=== PATIENT | male | born 1935 | race Caucasian/White ===

== ENCOUNTER → 2023-08-23 08:32 | Outpatient (REF) | payer MEDICARE, SELFPAY | LOC: HWRAD 08:32 | PROVIDERS: ATTENDING PHYSICIAN Specialist; FAMILY PHYSICIAN Family Medicine | DX: R31.0 Gross hematuria (principal) | CPT/HCPCS: 74178; Q9967 ==

== ENCOUNTER → 2024-07-08 10:19 | Outpatient (REF) | payer MEDICARE, SELFPAY | LOC: RCS 10:19 | PROVIDERS: ATTENDING PHYSICIAN Family Medicine | DX: R07.9 Chest pain, unspecified (principal); R47.81 Slurred speech; Z91.81 History of falling | CPT/HCPCS: 93017 ==

== ENCOUNTER → 2024-07-10 10:01 | Outpatient (REF) | payer MEDICARE, SELFPAY | LOC: HWRCS 10:01 | PROVIDERS: ATTENDING PHYSICIAN Internal Medicine Interventional Cardiology; FAMILY PHYSICIAN Family Medicine | DX: I10 Essential (primary) hypertension (principal) | CPT/HCPCS: 93306 ==

== ENCOUNTER → 2024-07-12 11:12 | Outpatient (REF) | payer MEDICARE, SELFPAY | LOC: HWRAD 11:12 | PROVIDERS: ATTENDING PHYSICIAN Family Medicine; REFERRING PHYSICIAN Internal Medicine Interventional Cardiology | DX: Z91.81 History of falling (principal); R47.81 Slurred speech | CPT/HCPCS: 93880 ==

== ENCOUNTER → 2024-07-15 13:29 | Outpatient (REF) | payer MEDICARE, SELFPAY | LOC: MRI 3T 13:29 | PROVIDERS: ATTENDING PHYSICIAN Family Medicine | DX: Z91.81 History of falling (principal); R47.81 Slurred speech | CPT/HCPCS: 70551 ==

== ENCOUNTER 2024-10-16 04:25 | Inpatient (IN) | payer MEDICARE, SELFPAY ==
[2024-10-15] VITALS (8 sets, daily range): BP systolic 98–145; BP diastolic 55–88; BMI 25.5
[2024-10-15 17:58] LABS: Hematocrit 39.9 % (39.0-52.0); Hemoglobin 13.9 g/dL (13.0-18.0); Mean Corp Hgb Conc. 34.8 g/dL (33.0-37.0); Mean Corpuscular Volume 96.8 fL (80.0-94.0); Nucleated Red Blood Cells % 0 % (-); Platelet Count 170 10^3/uL (130-400); Red Cell Dist. Width 13.0 % (11.5-14.5)
[2024-10-15 18:10] LABS: INR 2.54; PT 27.3 Sec (11.4-14.6)
[2024-10-16] VITALS (21 sets, daily range): BP systolic 97–146; BP diastolic 47–88; BMI 24.1
[2024-10-16 00:39] LABS: ALT (SGPT) 20 U/L (0-50); AST (SGOT) 25 U/L (17-59); Albumin 3.9 g/dl (3.5-5.0); Alkaline Phosphatase 70 U/L (38-126); Blood Urea Nitrogen 29 mg/dl (9-20); Calcium 8.9 mg/dl (8.4-10.2); Carbon Dioxide 23 mmol/L (22-30); Chloride 111 mmol/L (98-107); Estimated Creatinine Clearance 74 ml/min; Glucose 106 mg/dl (70-99); Potassium 4.6 mmol/L (3.5-5.1); Sodium 140 mmol/L (135-145); Total Protein 6.2 g/dl (6.3-8.2); eGFR > 60.00
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
[2024-10-16] MEDS: AQUAMEPHYTON 51 MG IV (03:44)
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
[2024-10-16] MEDS: KCENTRA 80 UNIT IV (04:36)
[2024-10-16 04:47] LABS: Fibrinogen 299 MG/DL (199-459)
--- NOTE | 2024-10-16 06:00 | PTCARENOTE ---
Admitted pt from the ED s/p fall with left knee hematoma. Alert and oriented/pleasant. CAMPBELL. Bedrest respected. Left knee swollen 19inches at biggest circumference (knee including blister). Palpable pulses. Neurovascular checks q2h. No pain with
rest. Knee soft, ecchymotic. Room air, lungs clear. NPO for now. Sips of clears as ordered. Voids in urinal. Report given to oncoming shift.
[2024-10-16 06:31] LABS: INR 1.31; PT 16.6 Sec (11.4-14.6)
[2024-10-16 06:45] LABS: Blood Urea Nitrogen 29 mg/dl (9-20); Calcium 8.9 mg/dl (8.4-10.2); Carbon Dioxide 21 mmol/L (22-30); Chloride 110 mmol/L (98-107); Estimated Creatinine Clearance 74 ml/min; Glucose 114 mg/dl (70-99); Potassium 4.5 mmol/L (3.5-5.1); Sodium 138 mmol/L (135-145); eGFR > 60.00
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
[2024-10-16] MEDS: THIAMINE INJECTION 200 MG IV ×2 (09:17→20:24)
[2024-10-16] MEDS: FOLVITE 1 MG PO (09:17)
--- NOTE | 2024-10-16 11:17 | PTCARENOTE ---
Vascular team at bedside this am. Follow up with hospitalist team. Await surgery to reevaluate. Continue npo till cleared by team. Patient update family via phone. Continue to reinforce plan of cares. Await diet orders and follow up plan of cares.
Updated assessment, vital sign trends ongoing as documented.
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
--- NOTE | 2024-10-16 13:32 | PTCARENOTE ---
Follow up with vascular and hospitalist team. [facility] team call and update report, 100% of lunch taken. James wrap compression to left knee intact. Transfer with critical care team to telemetry status.
[2024-10-16 14:04] LABS: Hematocrit 33.7 % (39.0-52.0); Hemoglobin 11.7 g/dL (13.0-18.0); Mean Corp Hgb Conc. 34.7 g/dL (33.0-37.0); Mean Corpuscular Volume 99.1 fL (80.0-94.0); Platelet Count 154 10^3/uL (130-400); Red Cell Dist. Width 13.1 % (11.5-14.5)
--- NOTE | 2024-10-16 14:33 | CM ---
Pt moved to [phone] from [id number] .Alert awake oriented patient who lives with his Amber who lives in a 2 story home with 2 step to enter and bed and bathroom on first floor. He is independent in driving and in all activities of daily living.He was
offered VN he declined need.Pt declined substance abuse consult.
No VN hx / No SNF history
Pharmacy [facility]
PCP DR Reddy
PLAN Home Declined VN
[2024-10-16] MEDS: PRAVACHOL 40 MG PO (21:56)
[2024-10-17] VITALS (17 sets, daily range): BP systolic 15–151; BP diastolic 54–119; BMI 24.3
[2024-10-17 07:28] LABS: INR 1.19; PT 15.7 Sec (11.4-14.6)
[2024-10-17 07:38] LABS: Hematocrit 32.0 % (39.0-52.0); Hemoglobin 11.0 g/dL (13.0-18.0); Mean Corp Hgb Conc. 34.4 g/dL (33.0-37.0); Mean Corpuscular Volume 99.4 fL (80.0-94.0); Platelet Count 153 10^3/uL (130-400); Red Cell Dist. Width 13.2 % (11.5-14.5)
[2024-10-17 07:45] LABS: Blood Urea Nitrogen 32 mg/dl (9-20); Calcium 8.9 mg/dl (8.4-10.2); Carbon Dioxide 23 mmol/L (22-30); Chloride 110 mmol/L (98-107); Estimated Creatinine Clearance 74 ml/min; Glucose 90 mg/dl (70-99); Potassium 4.0 mmol/L (3.5-5.1); Sodium 138 mmol/L (135-145); eGFR > 60.00
[2024-10-17] MEDS: THIAMINE INJECTION 200 MG IV ×2 (07:49→21:06)
[2024-10-17] MEDS: TOPROL XL 25 MG PO (07:49)
[2024-10-17] MEDS: FOLVITE 1 MG PO (07:49)
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
[2024-10-17] MEDS: BACTROBAN 2% OINTMENT 1 APPLIC NASAL (14:01)
[2024-10-17] MEDS: PERIDEX 0.12% ORAL RINSE 15 ML PO (14:01)
[2024-10-17] MEDS: VANCOCIN 530 MG IV (14:26)
--- NOTE | 2024-10-17 14:41 | W.SUR.PREOP ---
Pre-Operative Surgical Note
-
I have examined this patient prior to the performance of the scheduled procedure.
The patient's condition is unchanged from the time of the current History and
Physical and the patient is able to undergo the scheduled procedure.
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
--- NOTE | 2024-10-17 14:54 | CM ---
Chart reviewed; patient going to OR today. Event Specialist Product Demonstrator will monitor for discharge needs and support when identified
--- NOTE | 2024-10-17 15:48 | W.SUR.POST ---
Surgical Immediate Post Op
Note
Pre Op Diagnosis: Left thigh hematoma
Post Op Diagnosis: same
Procedure Performed: Left thigh hematoma washout
Primary Surgeon: Chandler
Assist: Thony ROSA
Anesthesia: LMA
Estimated Blood Loss: 10cc
Fluids: see anesthesia flow sheet
Drains/Shunts: AMANDA drain
Specimens/Cultures: Hematoma
Doppler/Duplex/Angio (Y/N): Y
Complications: None
Operative Findings: Successful hematoma evacuation
[2024-10-17] MEDS: PRAVACHOL 40 MG PO (21:06)
[2024-10-18 03:24] VITALS: BP 125/68
[2024-10-18 05:46] VITALS: BMI 24.2
[2024-10-18 06:35] LABS: Hematocrit 34.9 % (39.0-52.0); Hemoglobin 12.0 g/dL (13.0-18.0); Mean Corp Hgb Conc. 34.4 g/dL (33.0-37.0); Mean Corpuscular Volume 100.0 fL (80.0-94.0); Nucleated Red Blood Cells % 0 % (-); Platelet Count 183 10^3/uL (130-400); Red Cell Dist. Width 12.8 % (11.5-14.5)
[2024-10-18 06:43] LABS: INR 1.08; PT 14.5 Sec (11.4-14.6)
[2024-10-18 07:00] VITALS: BP 148/83
[2024-10-18 07:03] LABS: Blood Urea Nitrogen 27 mg/dl (9-20); Calcium 8.6 mg/dl (8.4-10.2); Carbon Dioxide 21 mmol/L (22-30); Chloride 108 mmol/L (98-107); Estimated Creatinine Clearance 74 ml/min; Glucose 124 mg/dl (70-99); Potassium 5.0 mmol/L (3.5-5.1); Sodium 138 mmol/L (135-145); eGFR > 60.00
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
[2024-10-18] MEDS: NORVASC 10 MG PO (09:22)
[2024-10-18] MEDS: FOLVITE 1 MG PO (09:22)
[2024-10-18] MEDS: TOPROL XL 25 MG PO (09:22)
[2024-10-18 11:00] VITALS: BP 130/64
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
[2024-10-18 11:44] LABS: Hematocrit 33.4 % (39.0-52.0); Hemoglobin 11.5 g/dL (13.0-18.0)
[2024-10-18 15:00] VITALS: BP 136/69
--- NOTE | 2024-10-18 16:51 | CM ---
Plan is to home with possible drain, need to review option for home care.
Plan; To follow up for home care needs at discharge, patient had declined home care.
[2024-10-18 17:42] LABS: Hematocrit 32.6 % (39.0-52.0); Hemoglobin 11.6 g/dL (13.0-18.0)
[2024-10-18] MEDS: COUMADIN 2 MG PO (18:15)
[2024-10-18 19:46] VITALS: BP 122/63
[2024-10-18] MEDS: COLACE 100 MG PO (21:19)
[2024-10-18] MEDS: PRAVACHOL 40 MG PO (21:19)
[2024-10-18 23:07] VITALS: BP 131/67
[2024-10-19 03:36] VITALS: BP 124/59
[2024-10-19 05:17] VITALS: BMI 24.4
--- NOTE | 2024-10-19 05:58 | W.PN.UPDATE ---
Update Note
Progress Note Update
Patient with pauses up to 2.33 sec and bradycardia with hr 40s-50s while sleeping. asymptomatic.
Patient hr back to normal once he is waking up.
Bp 124/59, hr 56, RR 20, temp 97.8.
Patient has no PMH of sleep apnea but he mentioned that he sleeps poorly.
Ekg ordered
Patient currently on Toprol 25mg daily will hold.
O2 ordered.
Continue with tele.
--- NOTE | 2024-10-19 06:04 | SUR.OPER ---
Advised covering provider of patient's frequent pauses overnight. His heart rate is often in the 40s to 50s while asleep...plus frequent pauses. Will post a strip showing a pause.
[2024-10-19 07:30] VITALS: BP 139/68
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
[2024-10-19 08:02] LABS: Hematocrit 31.5 % (39.0-52.0); Hemoglobin 10.8 g/dL (13.0-18.0); Mean Corp Hgb Conc. 34.3 g/dL (33.0-37.0); Mean Corpuscular Volume 99.4 fL (80.0-94.0); Nucleated Red Blood Cells % 0 % (-); Platelet Count 197 10^3/uL (130-400); Red Cell Dist. Width 13.0 % (11.5-14.5)
[2024-10-19 08:10] LABS: INR 1.19; PT 15.4 Sec (11.4-14.6)
[2024-10-19 09:09] LABS: Blood Urea Nitrogen 27 mg/dl (9-20); Calcium 9.1 mg/dl (8.4-10.2); Carbon Dioxide 26 mmol/L (22-30); Chloride 109 mmol/L (98-107); Estimated Creatinine Clearance 74 ml/min; Glucose 93 mg/dl (70-99); Magnesium 2.0 mg/dl (1.6-2.3); Potassium 4.2 mmol/L (3.5-5.1); Sodium 139 mmol/L (135-145); eGFR > 60.00
[2024-10-19] MEDS: VITAMIN B1 100 MG PO ×2 (09:50→19:46)
[2024-10-19] MEDS: NORVASC 10 MG PO (09:50)
[2024-10-19] MEDS: FOLVITE 1 MG PO (09:50)
[2024-10-19] MEDS: COLACE 100 MG PO ×2 (09:56→19:48)
[2024-10-19] MEDS: MIRALAX 17 GRAMS PO (10:11)
[2024-10-19 11:05] VITALS: BP 112/54
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
[2024-10-19 15:05] VITALS: BP 114/61
[2024-10-19] MEDS: COUMADIN 1.5 MG PO (17:41)
[2024-10-19 19:44] VITALS: BP 115/60
[2024-10-19] MEDS: PRAVACHOL 40 MG PO (22:14)
--- NOTE | 2024-10-19 23:00 | PTCARENOTE ---
Patient's TV flickering at times. Called maintenance. Maintenance came by and was unable to correct. Offered to move patient to room 2126. Patient said it's OK if he stays where he is for tonight. Advised patient to move to another room if he
wants. Patient staying put for the night.
[2024-10-19 23:05] VITALS: BP 143/73
--- NOTE | 2024-10-19 23:56 | RESPNOTE ---
Nocturnal pulse ox study started at 2340. Pt is on RA. Pt educated on this study. RN made aware.
[2024-10-20] VITALS (7 sets, daily range): BP systolic 128–145; BP diastolic 59–90; BMI 23.9
[2024-10-20 06:05] LABS: Hematocrit 30.1 % (39.0-52.0); Hemoglobin 10.7 g/dL (13.0-18.0); Mean Corp Hgb Conc. 35.5 g/dL (33.0-37.0); Mean Corpuscular Volume 98.4 fL (80.0-94.0); Platelet Count 189 10^3/uL (130-400); Red Cell Dist. Width 12.9 % (11.5-14.5)
[2024-10-20 06:18] LABS: INR 1.31; PT 16.6 Sec (11.4-14.6)
[2024-10-20 06:26] LABS: Blood Urea Nitrogen 26 mg/dl (9-20); Calcium 8.9 mg/dl (8.4-10.2); Carbon Dioxide 25 mmol/L (22-30); Chloride 111 mmol/L (98-107); Estimated Creatinine Clearance 74 ml/min; Glucose 91 mg/dl (70-99); Potassium 4.1 mmol/L (3.5-5.1); Sodium 138 mmol/L (135-145); eGFR > 60.00
[2024-10-20] MEDS: NORVASC 10 MG PO (08:44)
[2024-10-20] MEDS: COLACE 100 MG PO (08:44)
[2024-10-20] MEDS: FOLVITE 1 MG PO (08:44)
[2024-10-20] MEDS: VITAMIN B1 100 MG PO ×2 (08:44→20:23)
[2024-10-20] MEDS: DULCOLAX 5 MG PO (08:56)
[2024-10-20] MEDS: LIDOCAINE 4% PATCH 1 PATCH TOPICAL (11:43)
[2024-10-20] MEDS: CITROMA 300 ML PO (11:43)
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
[2024-10-20] MEDS: MIRALAX 17 GRAMS PO (16:40)
[2024-10-20] MEDS: COUMADIN 1.5 MG PO (17:15)
--- NOTE | 2024-10-20 17:45 | PTCARENOTE ---
Patient c/o new lower back pain that he says started early this AM when he first got OOB prior to change of shift, also states he feels constipated and has not had BM since Monday, says stomach feels bloated and is unsure if back pain is related;
hypoactive bowel sounds, round obese full belly when assessed by this RN. MD made aware, verbal order taken for one time dose of PO Dulcolax ordered per MD this AM; mag citrate x1, lido patch to lower back and Abd XR also ordered per MD this AM,
patient also received PRN Colace this AM - see MAY. Patient states small formed BM in bathroom prior to Abd XR this afternoon with partial relief, PRN miralax administered - see MAY. MD made aware. Patient states lower back pain partially improved
throughout shift, ambulatory in room with standby assist and RW, ringing appropriately.
[2024-10-20] MEDS: REMOVE LIDOCAINE PATCH 1 PATCH REMOVE (20:23)
[2024-10-20] MEDS: PRAVACHOL 40 MG PO (21:11)
[2024-10-21 03:24] VITALS: BP 139/91
[2024-10-21 07:14] VITALS: BP 143/98
[2024-10-21 08:07] LABS: Hematocrit 33.6 % (39.0-52.0); Hemoglobin 11.6 g/dL (13.0-18.0); Mean Corp Hgb Conc. 34.5 g/dL (33.0-37.0); Mean Corpuscular Volume 98.2 fL (80.0-94.0); Platelet Count 209 10^3/uL (130-400); Red Cell Dist. Width 13.0 % (11.5-14.5)
[2024-10-21 08:08] LABS: INR 1.27; PT 16.2 Sec (11.4-14.6)
[2024-10-21] MEDS: VITAMIN B1 100 MG PO (08:28)
[2024-10-21] MEDS: FOLVITE 1 MG PO (08:28)
[2024-10-21] MEDS: LIDOCAINE 4% PATCH 1 PATCH TOPICAL (08:28)
[2024-10-21] MEDS: NORVASC 10 MG PO (08:29)
[2024-10-21 08:31] LABS: Blood Urea Nitrogen 25 mg/dl (9-20); Calcium 8.6 mg/dl (8.4-10.2); Carbon Dioxide 24 mmol/L (22-30); Chloride 109 mmol/L (98-107); Estimated Creatinine Clearance 85 ml/min; Glucose 90 mg/dl (70-99); Potassium 4.2 mmol/L (3.5-5.1); Sodium 138 mmol/L (135-145); eGFR > 60.00
[2024-10-21 11:49] VITALS: BP 109/65
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
--- NOTE | 2024-10-21 13:01 | CM ---
CM following re: discharge planning.
Reviewed pt's chart, met with pt.
Discharge order noted. Pt is aware, expressed his agreement and he stated he is independent with functional ability, no after care needed and his sister in Law will transport home.
IMM reviewed, placed on chart, pt has a copy.
No after care VN services indicated.
D/c plan: home with no after care VN needs. Sister in Law to transport.
== END 2024-10-21 14:22 | disposition home or self-care (01) | DRG 580 ==
LOC: 2 NORTH 04:25
PROVIDERS: Emergency Medicine; Internal Medicine; Physician Assistant; ADMITTING PHYSICIAN Hospitalist; ATTENDING PHYSICIAN Internal Medicine; EMERGENCY PHYSICIAN Student in an Organized Health Care Education/Training Program; FAMILY PHYSICIAN Family Medicine; OTHER PHYSICIAN Surgery Vascular Surgery
PROC: 30283B1 Transfusion of Nonautologous 4-Factor Prothrombin Complex Concentrate into Vein, Percutaneous Approach (ICD-10-PCS; 2024-10-16)
PROC: 0JCM0ZZ Extirpation of Matter from Left Upper Leg Subcutaneous Tissue and Fascia, Open Approach (ICD-10-PCS; 2024-10-17)
DX: S70.12XA Contusion of left thigh, initial encounter (principal); D68.32 Hemorrhagic disorder due to extrinsic circulating anticoagulants; E85.4 Organ-limited amyloidosis; I48.21 Permanent atrial fibrillation; I68.0 Cerebral amyloid angiopathy; S80.12XA Contusion of left lower leg, initial encounter; G47.33 Obstructive sleep apnea (adult) (pediatric); I10 Essential (primary) hypertension; K59.00 Constipation, unspecified; M54.9 Dorsalgia, unspecified; T45.515A Adverse effect of anticoagulants, initial encounter; V18.4XXA Pedal cycle driver injured in noncollision transport accident in traffic accident, initial encounter; Y93.55 Activity, bike riding; Y92.9 Unspecified place or not applicable; Z79.01 Long term (current) use of anticoagulants; Z85.51 Personal history of malignant neoplasm of bladder; Z88.0 Allergy status to penicillin
CPT/HCPCS: 10140; 73564; 73706; 74022; 80048; 80053; 83735; 85014; 85018; 85025; 85027; 85384; 85610; 93005; 93971; 94762; 96365; 99285; J7168; Q9967

== ENCOUNTER → 2024-11-21 12:26 | Outpatient (REF) | payer MEDICARE, SELFPAY | LOC: WOUND 12:26 | PROVIDERS: ATTENDING PHYSICIAN Surgery; FAMILY PHYSICIAN Family Medicine | DX: L97.122 Non-pressure chronic ulcer of left thigh with fat layer exposed (principal) | CPT/HCPCS: 11042; 99203 ==

== ENCOUNTER → 2024-11-29 11:10 | Outpatient (REF) | payer MEDICARE, SELFPAY | LOC: WOUND 11:10 | PROVIDERS: ATTENDING PHYSICIAN Surgery; FAMILY PHYSICIAN Family Medicine | DX: L97.122 Non-pressure chronic ulcer of left thigh with fat layer exposed (principal); I48.21 Permanent atrial fibrillation; I50.9 Heart failure, unspecified; Z79.01 Long term (current) use of anticoagulants | CPT/HCPCS: 11042 ==

== ENCOUNTER → 2024-12-09 13:56 | Outpatient (REF) | payer MEDICARE, SELFPAY | LOC: WOUND 13:56 | PROVIDERS: ATTENDING PHYSICIAN Surgery; FAMILY PHYSICIAN Family Medicine | DX: L97.122 Non-pressure chronic ulcer of left thigh with fat layer exposed (principal); I48.21 Permanent atrial fibrillation; I50.9 Heart failure, unspecified; Z79.01 Long term (current) use of anticoagulants | CPT/HCPCS: 99212 ==

== ENCOUNTER → 2025-02-20 11:41 | Outpatient (REF) | payer MEDICARE, SELFPAY | LOC: RAD 11:41 | PROVIDERS: ATTENDING PHYSICIAN Specialist; FAMILY PHYSICIAN Family Medicine | DX: R31.0 Gross hematuria (principal) | CPT/HCPCS: 74178; Q9967 ==